=== PATIENT | male | born 1975 | race Caucasian/White ===

== ENCOUNTER 2023-06-29 22:25 | Emergency (ER) | payer OTHER ==
[~2023-06-29] VITALS: Ht 172.3 cm; Wt 95.0 kg
[2023-06-29 22:35] VITALS: BP 142/107
[2023-06-29] MEDS ORDERED: TRAM50TA3 PO (23:17)
--- NOTE | 2023-06-29 23:18 | ED Fall/Injury ---
General Chief Complaint: Upper Extremity Stated Complaint: FALL, LT ARM PAIN, BURN RT THUMB Nursing Triage Note: Pt presents with c/o a burn to R hand and pain to L elbow after a fall. 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 He states he then slipped on a wet floor and landed on his back with his L arm behind him. Denies any injury to back, denies LOC. Pt ambulated to ER. 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 HE THEN SLIPPED ON WET FLOOR AND FELL, LANDING ON HIS LEFT ELBOW DID NOT HIT HIS HEAD OR HAVE LOSS OF CONSCIOUSNESS NO OTHER INJURIES FROM THE INCIDENT NO PARESTHESIAS OR MOTOR DEFICITS NO NECK OR BACK PAIN OCCURRED AT 2200 TONIGHT PT IS LEFT HANDED NO PRIOR INJURIES TO HIS LEFT ARM TETANUS IS UP TO DATE--03/2023 PT GOT OUT OF [facility] 04/19/23 CURRENTLY LIVING AT [facility] PCP: NONE Allergies and Home Medications Allergies Coded Allergies: No Known Drug Allergies (Unverified , 06/29/23) Patient Home Medication List Home Medication List Reviewed: Yes Tramadol HCl (Tramadol HCl) 50 Mg Tablet, 50 MG PO Q4H Prescribed by: CHRIS CROWDER on 06/29/23 9720 Review of Systems Review of Systems Constitutional: no symptoms reported Musculoskeletal: see HPI Skin: see HPI Psychiatric/Neurological: No Symptoms Reported Past Glzgpxd-Bmldqm-Qthhrj Hx Patient Social History Tobacco Use?: Yes Substance use?: Yes Alcohol Use?: Yes Immunizations Up To Date Tetanus Booster (TDap): Less than 5yrs Influenza Vaccine Up-to-Date: No; Not Current Past Medical History Surgeries: No Respiratory: No Cardiac: No Neurological: No Genitourinary: No Gastrointestinal: No Musculoskeletal: No Endocrine: No HEENT: No Psychosocial: Yes (SUBSTANCE ABUSE) Integumentary: No Blood Disorders: No Physical Exam Vital Signs Vital Signs - First Documented 06/29/23 22:35 Temp 36.8 Pulse 83 Resp 16 B/P (MAP) 142/107 (119) Capillary Refill : Less Than 3 Seconds Height, Weight, BMI Height: '" Weight: lbs. oz. kg; 32.00 BMI Method: General Appearance: WD/WN, no apparent distress Neck: normal inspection Cardiovascular: regular rate, rhythm Respiratory: normal breath sounds Gastrointestinal: non tender Back: normal inspection Extremities: normal capillary refill, other (THENAR EMINENCE OF RIGHT PALM WITH 1 X 3 CM SECOND DEGREE BURN WITH INTACT BLISTER. LEFT ELBOW TENDERNESS, LIMITED ROM DUE TO PAIN, NO OBVIOUS SWELLING, NO EXTERNAL EVIDENCE OF TRAUMA. DISTAL MOTOR/SENSORY/VASCULAR INTACT. 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, no motor/sensory deficits, alert, normal mood/affect, oriented x 3 Skin: normal color, warm/dry Joseluis Coma Score Best Eye Response: (4) Open Spontaneously Best Verbal Response: (5) Oriented Best Motor Response: (6) Obeys Commands Joseluis Total: 15 Procedures/Interventions Splinting and Joint Reduction : Arm Sling: [place] Hand-Made Type: orthoglass Splint Application: Long Arm Progress/Results/Core Measures Results/Orders My Orders Orders - CHRIS CROWDER DO Forearm, Left, 2 Views (06/29/23 22:41) Elbow, Left, 3 Views (06/29/23 22:41) Ed Ortho/Other Supplies Order (06/29/23 23:10) Rx-Tramadol Hcl (Rx-Ultram) (06/29/23 23:13) Vital Signs/I&O 06/29/23 22:35 Temp 36.8 Pulse 83 Resp 16 B/P (MAP) 142/107 (119) Blood Pressure Mean: 119 Progress Progress Note : Progress Note VITALS STABLE XRAYS WITH PROXIMAL ULNAR FRACTURE, PENDING RADIOLOGIST REVIEW PT PLACED IN SPLINT AND SLING, REFERRED TO ORTHOPEDIC SURGEON ROOM SERVICE ASSOCIATE FOR FURTHER CARE DISCUSSED TEST RESULTS, ANTICIPATED COURSE, SYMPTOMATIC TREATMENT, WOUND AND SPLINT CARE, MEDICATIONS, NEED FOR FOLLOW UP AND RETURN PRECAUTIONS Diagnostic Imaging Comments XRAYS LEFT ELBOW AND FOREARM--PENDING RADIOLOGIST REVIEW -FRACTURE OF PROXIMAL ULNA Reviewed: Reviewed by Me Departure Impression Primary Impression: Closed fracture of proximal end of left ulna Additional Impressions: Second degree burn of palm of right hand Fall from standing Disposition: 01 HOME, SELF-CARE Condition: Stable Departure-Patient Inst. Decision time for Depature: 23:15 Referrals: [facility] (PCP) Primary Care Physician JESSY DOAN MD Patient Instructions: Preventing Falls ED, Minor Skin Delcid ED, Elbow Fracture, Adult ED, Cast Care ED Add. Discharge Instructions: ICE TO SORE AREAS AT 20 MINUTE INTERVALS WEAR SPLINT AND SLING AT ALL TIMES FOLLOW UP WITH DR. DOAN, ORTHOPEDIC SURGEON, NEXT WEEK FOR FURTHER CARE--CALL Sunday TO SCHEDULE AN APPOINTMENT All discharge instructions reviewed with patient and/or family. Voiced und erstanding. Scripts Tramadol HCl (Tramadol HCl) 50 Mg Tablet 50 MG PO Q4H for Pain, #20 TAB Prov: CHRIS CROWDER DO 06/29/23 Work/School Note: Work Release Form Date Seen in the Emergency Department: Jun 29, 2023 Restrictions: Need Release from Doctor CHRIS CROWDER DO Jun 29, 2023 23:18
--- NOTE | 2023-06-30 08:16 | Diagnostic Imaging Report ---
CLINICAL INDICATION: Patient is status post fall and complains of left elbow and left forearm pain. No bruising or swelling. EXAMS: 1: X-ray of the left elbow, 2 views. 2: X-ray of the left forearm, 2 views. COMPARISON: None. FINDINGS AND IMPRESSION: 1: There is a subtle curvilinear lucency involving the proximal aspect of the left ulna which extends to the articular surface which is best seen on the AP views. This is concerning for a nondisplaced fracture. There is an elbow effusion with elevation of the anterior fat pad. 2: There is lucency and irregularity involving the coronoid process of the proximal ulna. This may be related to degenerative spurring but fracture in the region cannot be completely excluded. CT scan of the left elbow would help better evaluate. 3: The remainder of the left elbow and left forearm is unremarkable. 4: I agree with the Emergency Room clinician's preliminary impression. Dictated by: Dictated on workstation # [id number]
== END 2023-06-29 23:46 | disposition home or self-care (01) ==
LOC: ER 22:31
DX: S52.002A Unspecified fracture of upper end of left ulna, initial encounter for closed fracture (principal); T23.201A Burn of second degree of right hand, unspecified site, initial encounter; Y99.0 Civilian activity done for income or pay; Y92.090 Kitchen in other non-institutional residence as the place of occurrence of the external cause; W01.0XXA Fall on same level from slipping, tripping and stumbling without subsequent striking against object, initial encounter; X08.8XXA Exposure to other specified smoke, fire and flames, initial encounter
CPT/HCPCS: 29105; 73080; 73090